=== PATIENT | female | born 1995 | race African-American/Black ===

== ENCOUNTER 2018-08-17 12:53 | Emergency (ER) | payer OTHER ==
[~2018-08-17] VITALS: Ht 157.5 cm; Wt 109.4 kg
[2018-08-17 13:06] VITALS: BP 128/60
--- NOTE | 2018-08-17 13:11 | NUR ---
PATIENT AMBULATED TO BED 8 AT THIS TIME.
--- NOTE | 2018-08-17 13:20 | NUR ---
PT BIB SELF C/O LT SIDE FACE PAIN/RED/SWELLING X 1 HOURS. - TRAUMA, PAIN 7/10, PT DENIES N/V/D; SKIN IS INTACT, FLUSHED/WARM/DRY; AAOX4, PERRL, WITH EVEN AND STEADY GAIT; LUNGS CLEAR BL, BREATHING UNLABORED; HR EVEN AND REGULAR, BL PERIPHERAL PULSES PRESENT; BS ACTIVE X4, NO TENDERNESS TO PALPATION. PT DENIES ANY FEVER, CP, SOB, OR COUGH AT THIS TIME; PT STATES 7/10 PAIN AT THIS TIME; VSS; PATIENT POSITIONED FOR COMFORT; HOB ELEVATED; BEDRAILS UP X2; BED DOWN.
[2018-08-17] MEDS ORDERED: hydrOXYzine HCL 25 MG TAB PO ONE (13:35)
[2018-08-17] MEDS ORDERED: CLINDAMYCIN 150 MG CAP PO ONE (13:35)
[2018-08-17] MEDS ORDERED: KETOROLAC 60 MG/2 ML VIAL IM ONE (13:35)
--- NOTE | 2018-08-17 14:01 | NUR ---
PO/IM MEDS GIVEN-NADR AT THIS TIME
[2018-08-17 14:41] VITALS: BP 111/57
--- NOTE | 2018-08-17 14:41 | NUR ---
Patient discharged with v/s stable. Written and verbal after care instructions given and explained. Patient alert, oriented and verbalized understanding of instructions. Ambulatory with steady gait. All questions addressed prior to discharge. ID band removed. Patient advised to follow up with PMD. Rx of CLINDAMYCIN AND MOTRIN given. Patient educated on indication of medication including possible reaction and side effects. Opportunity to ask questions provided and answered.
== END 2018-08-17 14:41 | disposition home or self-care (01) ==
LOC: MED 12:53
DX: K02.9 Dental caries, unspecified (principal); I10 Essential (primary) hypertension
CPT/HCPCS: 81025; 96372; 99283; J1885

== ENCOUNTER 2019-03-29 15:14 | Emergency (ER) | payer OTHER ==
[~2019-03-29] VITALS: Ht 157.5 cm; Wt 110.2 kg
--- NOTE | 2019-03-29 15:16 | NUR ---
PT TO ER BED 5
[2019-03-29 15:27] VITALS: BP 144/76
--- NOTE | 2019-03-29 15:38 | NUR ---
23 Y/O FEMALE C/O COUGH AND SORE THROAT X 2 WKS. PT STATES PRODUCTIVE COUGH WITH GREEN SPUTUM. DENIES FEVER. NO C/O N/V/D. RR EVEN AND UNLABORED, NO SIGN OF RESPIRATORY DISTRESS. 8/10 SHARP PAIN TO THROAT WORSE WITH COUGH. STATES SHE TOOK IBURPROFEN AT 0500 FOR PAIN, MINIMAL RELIEF OF PAIN. VSS MEDHX: DENIES ALLERGIES:NKA
--- NOTE | 2019-03-29 15:40 | NUR ---
MARI DIXON AT BEDSIDE EXAMINING PT.
--- NOTE | 2019-03-29 15:44 | NUR ---
STREP SWAB COLLECTED AT THIS TIME
[2019-03-29] MEDS ORDERED: KETOROLAC 30 MG/ML VIAL IM ONE (16:35)
--- NOTE | 2019-03-29 16:50 | NUR ---
Patient discharged with v/s stable. Written and verbal after care instructions given and explained. Patient alert, oriented and verbalized understanding of instructions. Ambulatory with steady gait. All questions addressed prior to discharge. ID band removed. Patient advised to follow up with PMD. Rx of PROMETHAZINE, AZITHROMYCIN, IBUPROFEN given. Patient educated on indication of medication including possible reaction and side effects. Opportunity to ask questions provided and answered.
--- NOTE | 2019-03-29 16:50 | NUR ---
PT DISCHARGED BEFORE MEDICATION RE-EVALUATED, STATES SHE HAS TAKEN MED BEFORE.
[2019-03-29 16:51] VITALS: BP 133/78
== END 2019-03-29 16:50 | disposition home or self-care (01) ==
LOC: MED 15:14
DX: J02.8 Acute pharyngitis due to other specified organisms (principal); B96.89 Other specified bacterial agents as the cause of diseases classified elsewhere; I10 Essential (primary) hypertension
CPT/HCPCS: 81025; 87081; 96372; 99283; J1885

== ENCOUNTER 2019-04-28 21:55 | Emergency (ER) | payer OTHER ==
[~2019-04-28] VITALS: Ht 157.5 cm; Wt 112.9 kg
[2019-04-28 21:59] VITALS: BP 142/89
[2019-04-28 22:24] VITALS: BP 142/89
[2019-04-28] MEDS ORDERED: ONDANSETRON 4 MG ODT PO ONE (22:55)
== END 2019-04-28 23:59 | disposition home or self-care (01) ==
LOC: MED 21:55
DX: F15.93 Other stimulant use, unspecified with withdrawal (principal); I10 Essential (primary) hypertension
CPT/HCPCS: 81002; 81025; 99283; Q0162

== ENCOUNTER 2019-08-23 11:08 | Emergency (ER) | payer OTHER ==
[~2019-08-23] VITALS: Ht 160 cm; Wt 118.8 kg
[2019-08-23 11:15] VITALS: BP 124/91
[2019-08-23] MEDS ORDERED: SODIUM CHLORIDE FLUSH 10 ML SYR IVF STA (11:18)
--- NOTE | 2019-08-23 11:21 | NUR ---
PT AMBULATED TO LOBBY
[2019-08-23 11:49] LABS: BASOPHILS # (AUTO) 0.1 K/uL (0.00-0.22); BASOPHILS % (AUTO) 0.5 % (0.0-2.0); EOSINOPHILS # (AUTO) 0.1 K/uL (0-0.4); EOSINOPHILS % (AUTO) 0.6 % (0.0-4.0); HEMATOCRIT 41.5 % (36-48); HEMOGLOBIN 13.6 g/dL (12.0-16.0); LYMPHOCYTES # (AUTO) 3.2 K/uL (2.5-16.5); LYMPHOCYTES % (AUTO) 22.5 % (20.5-51.1); MEAN CORPUSCULAR HEMOGLOBIN 29 pg (27-31); MEAN CORPUSCULAR HGB CONC 33 g/dL (33-37); MEAN CORPUSCULAR VOLUME 88.5 fL (80-94); MONOCYTES # (AUTO) 0.8 K/uL (0.8-1.0); MONOCYTES % (AUTO) 5.5 % (1.7-9.3); NEUTROPHILS % (AUTO) 70.9 % (42.2-75.2); PLATELET COUNT (AUTO) 353 K/uL (140-450); RED BLOOD CELL COUNT(AUTO) 4.69 MIL/uL (4.20-5.40); RED CELL DISTRIBUTION WIDTH 13.5 % (11.6-13.7); WHITE BLOOD COUNT (AUTO) 14.1 K/uL (4.8-10.8)
[2019-08-23 12:42] LABS: ANION GAP 13.7 (8-16); CARBON DIOXIDE 27.3 mmol/L (21-32)
[2019-08-23 12:43] LABS: CREATININE 0.8 mg/dL (0.6-1.3); TOTAL BILIRUBIN 0.3 mg/dL (0.0-1.0)
[2019-08-23 12:44] LABS: ALBUMIN 3.5 g/dL (3.4-5.0)
--- NOTE | 2019-08-23 13:11 | NUR ---
24 Y/O FEMALE FROM HOME C/O N/V/D X 1 WK. STATES SLIGHT ABD PAIN. ABD SOFT, ROUND, NONTENDER TO PALP, BOWEL SOUNDS PRESENT X 4 QUAD. RR EVEN AND UNLABORED. VSS MEDHX: DENIES
--- NOTE | 2019-08-23 13:12 | NUR ---
Patient discharged with v/s stable. Written and verbal after care instructions given and explained. Patient alert, oriented and verbalized understanding of instructions. Ambulatory with steady gait. All questions addressed prior to discharge. ID band removed. Patient advised to follow up with PMD. Rx of ZOFRAN 4MG AND LOPERAMIDE 2MG given. Patient educated on indication of medication including possible reaction and side effects. Opportunity to ask questions provided and answered.
[2019-08-23 13:13] VITALS: BP 124/91
== END 2019-08-23 13:12 | disposition home or self-care (01) ==
LOC: MED 11:08
DX: R11.2 Nausea with vomiting, unspecified (principal); K52.9 Noninfective gastroenteritis and colitis, unspecified; I10 Essential (primary) hypertension
CPT/HCPCS: 36415; 80053; 83690; 85025; 99283

== ENCOUNTER 2020-05-15 18:14 | Emergency (ER) | payer OTHER ==
[~2020-05-15] VITALS: Ht 157.5 cm; Wt 117.9 kg
[2020-05-15 18:23] VITALS: BP 126/70
--- NOTE | 2020-05-15 18:27 | NUR ---
Eda mac in [facility] - 05/15/20 at 1828 by [email or web address] PT AMB TO BED 11.
--- NOTE | 2020-05-15 18:28 | NUR ---
PT AMB TO BED 11.
--- NOTE | 2020-05-15 19:13 | NUR ---
24 YEAR OLD FEMALE COMPLAINS OF 5/10 CRAMPING SINCE YESTERDAY. PT STATES THAT SHE DOES NOT HAVE MENSTRUAL PERIOD DUE TO CONTROL PATCH. PT DENIES N/V/D. PT DENIES ANY DISCHARGE FROM SITE. PT AOX4, BREATHING EVEN AND UNLABORED, SKIN WARM AND DRY. BED IN LOWEST POSITION, LOCKED, BED RAIL UPX1. PMH - DENIES ALLERGIES - NKA
--- NOTE | 2020-05-15 19:17 | NUR ---
REPORT RECEIVED FROM NGUYEN SANTO FOR SHIFT CHANGE.
--- NOTE | 2020-05-15 19:20 | NUR ---
ASSESSED PATIENT AT BEDSIDE. PATIENT IS SITTING COMFORTABLY IN BED, IS IN NO APPARENT DISTRESS. DENIES PAIN AT THIS TIME. A & O X4. BED IS LOCKED AND IN LOWEST POSITION. ALL NEEDS MET AT THIS TIME.
--- NOTE | 2020-05-15 19:39 | NUR ---
PATIENT AMBULATED TO RESTROOM TO COLLECT UA SAMPLE.
--- NOTE | 2020-05-15 19:51 | NUR ---
PATIENT BEING TAKEN FOR XRAY BY TECH VIA WHEELCHAIR.
[2020-05-15] MEDS ORDERED: IBUP-2213 PO (20:30)
[2020-05-15 20:50] VITALS: BP 126/70
== END 2020-05-15 20:50 | disposition home or self-care (01) ==
LOC: MED 18:14
DX: M54.5 Low back pain (principal); R10.30 Lower abdominal pain, unspecified; I10 Essential (primary) hypertension; Z79.899 Other long term (current) drug therapy
CPT/HCPCS: 74022; 81025; 99284

== ENCOUNTER 2021-07-22 06:46 | Emergency (ER) | payer OTHER ==
[~2021-07-22] VITALS: Ht 157.5 cm; Wt 117.9 kg
[~2021-07-22 06:46] MED LIST: IBUP-2213 PO
[2021-07-22 06:48] VITALS: BP 142/109
[2021-07-22] MEDS ORDERED: DICYCLOMINE HCL LIQUID 20 MG, ALUMINUM HYD/MAG/SIMETHICONE 30 ML, LIDOCAINE VISCOUS 2% ... PO ONE ×3 (07:35)
[2021-07-22] MEDS ORDERED: KETOROLAC 60 MG/2 ML VIAL IM ONE (07:35)
[2021-07-22] MEDS ORDERED: ALUMINUM HYD/MAG/SIMETHICONE 30 ML UDC ONE (08:02)
[2021-07-22] MEDS ORDERED: DICYCLOMINE HCL LIQUID 10 MG/5 ML UDC ONE (08:02)
[2021-07-22] MEDS ORDERED: TRAM50TA1 PO (08:25)
[2021-07-22] MEDS ORDERED: NAPR-1704 PO (08:25)
[2021-07-22 08:50] VITALS: BP 146/98
== END 2021-07-22 08:50 | disposition home or self-care (01) ==
LOC: MED 06:46
DX: R07.9 Chest pain, unspecified (principal); I10 Essential (primary) hypertension; Z79.1 Long term (current) use of non-steroidal anti-inflammatories (NSAID); Z79.891 Long term (current) use of opiate analgesic
CPT/HCPCS: 71045; 81002; 81025; 93005; 96372; 99283; J1885

== ENCOUNTER 2021-08-14 05:07 | Emergency (ER) | payer OTHER ==
[~2021-08-14] VITALS: Ht 157.5 cm; Wt 113.4 kg
[~2021-08-14 05:07] MED LIST changes: +NAPR-1704 PO; +TRAM50TA1 PO
[2021-08-14 05:10] VITALS: BP 153/95
--- NOTE | 2021-08-14 05:10 | NUR ---
TO BED AMBULATORY
--- NOTE | 2021-08-14 05:25 | NUR ---
RECEIVED IN BED 4 WITH C/O LOWER ABD PAIN RADIATING TO HER LOWER BACK,AND CHEST ON AND OFF FOR 3 DAYS. PT STATES SHE WAS SEEN HERE 2 WEEKS AGO FOR THE SAME COMPLAINT AND WAS GIVEN NAPROSYN WHICH SHE TOOK TONIGHT WITHOUT RELIEF
[2021-08-14 06:06] LABS: APPEARANCE,URINE CLEAR (CLEAR); BILIRUBIN,URINE NEGATIVE (NEGATIVE); BLOOD, URINE 1+ (NEGATIVE); COLOR,URINE YELLOW (YELLOW); LEUKOCYTE ESTERASE ,URINE 1+ (NEGATIVE); NITRITE, URINE NEGATIVE (NEGATIVE); PH,URINE 5.5 (5.0-9.0); UGLUCOSE NEGATIVE (NEGATIVE)
--- NOTE | 2021-08-14 06:10 | NUR ---
DR MERCADO AT BEDSIDE FOR EXAM
[2021-08-14 06:17] LABS: RBC,URINE 0-5 /HPF (0-5); WBC,URINE 20-60 /HPF (0-5)
[2021-08-14] MEDS ORDERED: SUCRALFATE 1 GM TAB PO SCH (06:25)
[2021-08-14] MEDS ORDERED: ALUMINUM HYD/MAG/SIMETHICONE 30 ML UDC PO ONE (06:25)
--- NOTE | 2021-08-14 06:30 | NUR ---
RESTING WITH EYES CLOSED. AWAKENS WITH EASE AND DENIES PAIN OR DISCOMFORT
[2021-08-14 06:42] LABS: ALBUMIN 3.5 g/dL (3.4-5.0); ANION GAP 11.2 (8-16); CARBON DIOXIDE 23.7 mmol/L (21-32); CREATININE 0.7 mg/dL (0.6-1.3); POTASSIUM 3.9 mmol/L (3.5-5.1); TOTAL BILIRUBIN 0.3 mg/dL (0.0-1.0)
[2021-08-14] MEDS ORDERED: CEPH500C16 PO (07:00)
[2021-08-14] MEDS ORDERED: cefTRIAXone 1,000 MG in LIDOCAINE MPF 1% 2.1 ML IM ONE (07:00)
[2021-08-14] MEDS ORDERED: cefTRIAXone 1,000 MG VIAL ONE (07:17)
[2021-08-14] MEDS ORDERED: LIDOCAINE MPF 1% 5 ML ONE (07:17)
--- NOTE | 2021-08-14 07:18 | NUR ---
REPORT TO NGUYEN ZARAGOZA
--- NOTE | 2021-08-14 07:19 | NUR ---
RECEIVED REPORT FROM NGUYEN PARR. TRANSFER OF CARE AT THIS TIME.
[2021-08-14 07:36] LABS: BASOPHILS % (AUTO) 0.3 % (0.0-2.0); EOSINOPHILS # (AUTO) 0.1 K/uL (0-0.4); EOSINOPHILS % (AUTO) 0.8 % (0.0-4.0); HEMATOCRIT 39.9 % (36-48); HEMOGLOBIN 13.3 g/dL (12.0-16.0); LYMPHOCYTES % (AUTO) 27.2 % (20.5-51.1); MEAN CORPUSCULAR HEMOGLOBIN 29 pg (27-31); MEAN CORPUSCULAR HGB CONC 33 g/dL (33-37); MEAN CORPUSCULAR VOLUME 87.5 fL (80-94); MONOCYTES % (AUTO) 6.9 % (1.7-9.3); NEUTROPHILS # (AUTO) 9.6 K/uL (1.8-7.7); NEUTROPHILS % (AUTO) 64.8 % (42.2-75.2); PLATELET COUNT (AUTO) 283 K/uL (140-450); RED BLOOD CELL COUNT(AUTO) 4.56 MIL/uL (4.20-5.40); RED CELL DISTRIBUTION WIDTH 13.1 % (11.6-13.7); WHITE BLOOD COUNT (AUTO) 14.9 K/uL (4.8-10.8)
[2021-08-14 08:25] VITALS: BP 137/92
--- NOTE | 2021-08-14 08:27 | NUR ---
Patient discharged with v/s stable. Written and verbal after care instructions given FOR GASTRITIS AND URINARY TRACT INFECTION and explained. Patient alert, oriented and verbalized understanding of instructions. Ambulatory with steady gait. All questions addressed prior to discharge. ID band removed. Patient advised to follow up with PMD. Rx of KEFLEX given. Patient educated on indication of medication including possible reaction and side effects. Opportunity to ask questions provided and answered.
== END 2021-08-14 08:25 | disposition home or self-care (01) ==
LOC: MED 05:07
DX: K29.70 Gastritis, unspecified, without bleeding (principal); N39.0 Urinary tract infection, site not specified
CPT/HCPCS: 36415; 80053; 81001; 81025; 83690; 85025; 87086; 93005; 96372; 99284; J0696; J2001

== ENCOUNTER 2021-10-07 15:34 | Emergency (ER) | payer OTHER ==
[~2021-10-07] VITALS: Ht 157.5 cm; Wt 117.0 kg
[~2021-10-07 15:34] MED LIST changes: +CEPH500C16 PO
[2021-10-07 16:02] VITALS: BP 153/69
[2021-10-07] MEDS ORDERED: IBUPROFEN 600 MG TAB PO ONE (16:30)
--- NOTE | 2021-10-07 16:30 | NUR ---
26 Y/O FEMALE BIB SELF C/O OF CARBALLO, COUGH, SORE THROAT TODAY NKA PMH: DENIES
[2021-10-07] MEDS ORDERED: IBUP-2213 PO (17:10)
[2021-10-07] MEDS ORDERED: NIRM1TAB PO (17:10)
[2021-10-07] MEDS ORDERED: BENZ150C2 PO (17:12)
[2021-10-07 17:23] VITALS: BP 153/69
--- NOTE | 2021-10-07 17:24 | NUR ---
Patient discharged with v/s stable. Written and verbal after care instructions given and explained. Patient alert, oriented and verbalized understanding of instructions. Ambulatory with steady gait. All questions addressed prior to discharge. ID band removed. Patient advised to follow up with PMD. Rx of BENZONATE, MOTRIN, PAXLOVID CO PACK given. Patient educated on indication of medication including possible reaction and side effects. Opportunity to ask questions provided and answered.
== END 2021-10-07 17:24 | disposition home or self-care (01) ==
LOC: MED 15:34
DX: U07.1 COVID-19 (principal)
CPT/HCPCS: 71045; 99284

== ENCOUNTER 2022-03-09 03:25 | Emergency (ER) | payer OTHER ==
[~2022-03-09] VITALS: Ht 157.5 cm; Wt 113.4 kg
[~2022-03-09 03:25] MED LIST changes: +BENZ150C2 PO; +NIRM1TAB PO; +TRAM-748 PO; -TRAM50TA1 PO
[2022-03-09 03:36] VITALS: BP 128/90
--- NOTE | 2022-03-09 03:39 | NUR ---
TO LOBBY A/W BED AMBULATORY
--- NOTE | 2022-03-09 04:18 | NUR ---
Dr. Joe examining patient.
[2022-03-09 04:20] VITALS: BP 128/90
--- NOTE | 2022-03-09 04:20 | NUR ---
Patient discharged with v/s stable. Written and verbal after care instructions given and explained. Patient verbalized understanding. Ambulatory with steady gait. All questions addressed prior to discharge. Advised to follow up with PMD.
== END 2022-03-09 04:26 | disposition home or self-care (01) ==
LOC: MED 03:25
DX: R07.89 Other chest pain (principal); I10 Essential (primary) hypertension; Z79.899 Other long term (current) drug therapy
CPT/HCPCS: 93005; 99283

== ENCOUNTER 2022-09-01 06:00 | Emergency (ER) | payer OTHER ==
[~2022-09-01] VITALS: Ht 157.5 cm; Wt 117.9 kg
[2022-09-01 06:10] VITALS: BP 136/90; PULSE 69; RESP 16; TEMP 98.2; O2SAT 99
[2022-09-01] MEDS ORDERED: KETOROLAC 60 MG/2 ML VIAL IM ONE (06:20)
--- NOTE | 2022-09-01 06:26 | NUR ---
PT TO BED 8
--- NOTE | 2022-09-01 06:43 | NUR ---
27 YO F BIB SELF C/O LEFT SIDED NECK PAIN/STIFFNESS THAT RADIATES DOWN TO LEFT SHOULDER X 5 DAYS. PT STATES NO PRIOR INJURY. AXO4. PAIN 09/25. BED IN LOWEST POSITION. CALL LIGHT WITHIN REACH. NKDA NO MED HX.
[2022-09-01] MEDS ORDERED: IBUP-2213 PO (07:00)
[2022-09-01] MEDS ORDERED: CYCL-711 PO (07:00)
[2022-09-01 07:01] VITALS: BP 138/87; PULSE 85; RESP 14; O2SAT 99
== END 2022-09-01 07:05 | disposition home or self-care (01) ==
LOC: MED 06:00
DX: M54.2 Cervicalgia (principal); Z79.899 Other long term (current) drug therapy
CPT/HCPCS: 96372; 99283; J1885